=== PATIENT | female | born 1990 | race Asian ===

== ENCOUNTER 2019-09-18 23:57 | Emergency (ER) | payer OTHER ==
[~2019-09-18] VITALS: Ht 149.9 cm; Wt 49.1 kg
[~2019-09-18 23:57] MED LIST: DEPOP150I IM
[2019-09-19] MEDS ORDERED: OMEP20 PO (00:08)
[2019-09-19] MEDS ORDERED: DiphenhydrAMINE HCL 25 MG CAPSULE PO ONE (00:45)
[2019-09-19] MEDS ORDERED: PredniSONE 20 MG TABLET PO ONE (00:45)
[2019-09-19 01:03] VITALS: BP 128/81
== END 2019-09-19 01:12 | disposition home or self-care (01) ==
LOC: EMS 23:57
DX: K21.9 Gastro-esophageal reflux disease without esophagitis (principal); R21 Rash and other nonspecific skin eruption
CPT/HCPCS: 99283; J7512